=== PATIENT | female | born 2000 | race Caucasian/White ===

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

== ENCOUNTER 2022-01-20 16:41 | Emergency (ER) | payer OTHER ==
[2022-01-20 17:16] LABS: HEMOGLOBIN 12.3 gm/dl (12.3-15.3); RED BLOOD COUNT 3.99 M/UL (4.00-5.10); WHITE BLOOD COUNT 11.5 K/UL (4.5-11.0)
[2022-01-20 17:46] LABS: BUN/CREATININE RATIO 13 (0-10)
== END 2022-01-21 00:10 | disposition left against medical advice (07) ==
LOC: ER1 16:41
PROVIDERS: Emergency Medicine
DX: Z53.21 Procedure and treatment not carried out due to patient leaving prior to being seen by health care provider (principal)
CPT/HCPCS: 80053; 82550; 82553; 84484; 85025; 93005